=== PATIENT | female | born 1945 | race Caucasian/White ===

== ENCOUNTER 2022-09-28 15:11 | Outpatient (CLI) | payer MEDICARE, SELFPAY ==
[2022-09-28 11:31] LABS: Hemoglobin A1C 5.6 % (<5.7)
== END 2022-09-28 15:12 | disposition home or self-care (01) ==
LOC: LBO 15:16
PROVIDERS: Visit Provider General Practice
DX: E11.319 Type 2 diabetes mellitus with unspecified diabetic retinopathy without macular edema (principal)
CPT/HCPCS: 36415; 83036